=== PATIENT | female | born 2000 | race African-American/Black ===

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

== ENCOUNTER 2019-06-22 19:48 | Observation (INO) ==
[2019-06-22] MEDS ORDERED: ONDANSETRON ODT 4 MG TABLET PO STA (20:24)
[2019-06-22 21:12] LABS: Basophils % 0.2 % (0.0-0.8); Eosinophils # 0.2 10*3/uL (0.0-0.87); Eosinophils % 2.5 % (0.00-10.9); Hematocrit 22.1 VOL% (35.7-47.0); Immature Granulocytes % 0.4 %; Immature Granulocytes Absolute 0.03 #; Lymphocytes % 36.6 % (21.3-54.2); Mean Corpuscular Volume 56.5 FL (87-102); Mean Platelet Volume 9.9 FL (9.6-12.0); Monocytes % 5.9 % (1.7-12.7); NRBC # 0.06 10*3/uL; Neutrophils % 54.4 % (38.7-73.9); Platelet Count 501 T/CUMM (130-400); Red Blood Count 3.91 MC/CUMM (3.8-5.5); Red Cell Distribution Width 24.6 % (9.3-17.3); White Blood Count 8.3 T/CUMM (4-12)
[2019-06-22 21:14] LABS: Apearance,Urine CLEAR (Clear); Bilirubin,Urine Negative (Negative); Blood, Urine Large mg/dL (Negative); Glucose,Urine (UA) Negative (Negative); Ketones,Urine Negative (Negative); Mucus,Urine Occasional /LPF (Occasional); Nitrite,Urine Negative (Negative); Protein,Urine Negative; RBC,Urine 7 /HPF (0-4); Squamous Epithelial Cell,Urine Occasional /HPF (0-10); Urine Color Yellow (Yellow); Urine Specific Gravity 1.021 (1.001-1.035); Urine Urobilinogen < 2.0 EU/DL (0.2-1.0); WBC,Urine <1 /HPF (0-6)
[2019-06-22 21:15] LABS: Hemoglobin 5.3 GM/DL (12.0-16.0)
[2019-06-22 21:19] LABS: Elliptocytes Few; Hypochromasia 2+
[2019-06-22 21:20] LABS: Microcytosis 2+; Platelet Estimate Increased; Polychromasia 1+; Tear Drop Cells 2+
[2019-06-22] MEDS ORDERED: IBUPROFEN 800 MG TABLET PO PRN (21:31)
[2019-06-22] MEDS ORDERED: ACETAMINOPHEN 325 MG TABLET PO PRN (21:31)
[2019-06-22] MEDS ORDERED: ONDANSETRON 4 MG/2 ML VIAL IV PRN (21:31)
[2019-06-22 21:36] LABS: Alanine Aminotransferase 16 U/L (13-56); Albumin 3.1 G/DL (3.4-5.0); Alkaline Phosphatase 70 U/L (45-117); Aspartate Amino Transferase 7 U/L (0-37); Bilirubin,Total < 0.39 MG/DL (0.2-1.0); Blood Urea Nitrogen 9 MG/DL (7-18); Calcium 8.5 MG/DL (8.5-10.1); Estimated Glom Filtration Rate 178 ML/MIN; Glucose 120 MG/DL (74-106); Osmolality,Calculated 282.1 MOS/KG (273-304); Total Protein 7.1 G/DL (6.4-8.3)
[2019-06-22] MEDS ORDERED: SODIUM CHLORIDE 0.9% 1,000 ML IV PRN (22:06)
[2019-06-22] MEDS ORDERED: ACETAMINOPHEN 500 MG TABLET PO ONE (22:08)
[2019-06-22] MEDS ORDERED: FUROSEMIDE 20 MG/2 ML VIAL IV ONE (22:08)
[2019-06-23 08:52] LABS: Alanine Aminotransferase 13 U/L (13-56); Alkaline Phosphatase 61 U/L (45-117); Aspartate Amino Transferase 8 U/L (0-37); Bilirubin,Total < 0.39 MG/DL (0.2-1.0); Blood Urea Nitrogen 10 MG/DL (7-18); Calcium 8.7 MG/DL (8.5-10.1); Estimated Glom Filtration Rate 155 ML/MIN; Glucose 87 MG/DL (74-106); Osmolality,Calculated 278.3 MOS/KG (273-304); Total Protein 6.9 G/DL (6.4-8.3)
[2019-06-23 09:12] LABS: Basophils % 0.5 % (0.0-0.8); Eosinophils # 0.2 10*3/uL (0.0-0.87); Eosinophils % 2.7 % (0.00-10.9); Hematocrit 30.3 VOL% (35.7-47.0); Immature Granulocytes % 0.3 %; Immature Granulocytes Absolute 0.02 #; Lymphocytes # 2.9 10*3/uL (1.4-4.0); Lymphocytes % 39.9 % (21.3-54.2); Mean Corpuscular HGB Conc 26.7 GM/DL (32-36); Mean Corpuscular Volume 63.9 FL (87-102); Mean Platelet Volume 9.5 FL (9.6-12.0); Monocytes % 4.8 % (1.7-12.7); NRBC # 0.04 10*3/uL; Neutrophils % 51.8 % (38.7-73.9); Platelet Count 425 T/CUMM (130-400); Red Blood Count 4.74 MC/CUMM (3.8-5.5); Red Cell Distribution Width 31.8 % (9.3-17.3); White Blood Count 7.3 T/CUMM (4-12)
[2019-06-23 09:21] LABS: Hemoglobin 8.1 GM/DL (12.0-16.0)
[2019-06-23 10:36] LABS: Anisocytosis 1+; Hypochromasia 2+
[2019-06-23 10:37] LABS: Microcytosis 1+; Ovalocytes Slight
[2019-06-23 10:38] LABS: Platelet Estimate Increased; Tear Drop Cells Slight
[2019-06-23 11:18] VITALS: BP 131/78
== END 2019-06-23 11:50 | disposition home or self-care (01) ==
LOC: N.EDINP 19:48 → N.ED 19:48 → N.OB 21:45 → N.EDINP 21:47
PROVIDERS: ADMIT Obstetrics & Gynecology; ATTEND Obstetrics & Gynecology

== ENCOUNTER 2019-07-16 20:56 | Observation (INO) ==
[2019-07-16] MEDS ORDERED: HYDROmorphone 2 MG/1 ML VIAL IV STA (21:18)
[2019-07-16] MEDS ORDERED: ONDANSETRON 4 MG/2 ML VIAL IV STA (21:18)
[2019-07-16] MEDS ORDERED: LACTATED RINGERS 500 ML IV STA (21:18)
[2019-07-16 21:45] LABS: Alanine Aminotransferase 20 U/L (13-56); Albumin 3.3 G/DL (3.4-5.0); Alkaline Phosphatase 76 U/L (45-117); Amylase 37 U/L (25-115); Aspartate Amino Transferase 16 U/L (0-37); Bilirubin,Total < 0.39 MG/DL (0.2-1.0); Blood Urea Nitrogen 15 MG/DL (7-18); Calcium 8.3 MG/DL (8.5-10.1); Estimated Glom Filtration Rate 116 ML/MIN; Glucose 111 MG/DL (74-106); Osmolality,Calculated 280.4 MOS/KG (273-304); Total Protein 7.6 G/DL (6.4-8.3)
[2019-07-16 21:51] LABS: Basophils # 0.1 10*3/uL (0.0-0.2); Basophils % 0.3 % (0.0-0.8); Eosinophils # 0.2 10*3/uL (0.0-0.87); Eosinophils % 0.8 % (0.00-10.9); Hematocrit 31.3 VOL% (35.7-47.0); Immature Granulocytes % 0.5 %; Lymphocytes # 3.5 10*3/uL (1.4-4.0); Lymphocytes % 17.9 % (21.3-54.2); Mean Corpuscular HGB Conc 26.5 GM/DL (32-36); Mean Corpuscular Volume 64.8 FL (87-102); Mean Platelet Volume 9.8 FL (9.6-12.0); Monocytes % 2.9 % (1.7-12.7); Neutrophils % 77.6 % (38.7-73.9); Platelet Count 629 T/CUMM (130-400); Red Blood Count 4.83 MC/CUMM (3.8-5.5); Red Cell Distribution Width 30.1 % (9.3-17.3); White Blood Count 19.3 T/CUMM (4-12)
[2019-07-16 21:54] LABS: Hemoglobin 8.3 GM/DL (12.0-16.0)
[2019-07-16] MEDS ORDERED: ACETAMINOPHEN 325 MG TABLET PO PRN (23:58)
[2019-07-16] MEDS ORDERED: ONDANSETRON 4 MG/2 ML VIAL IV PRN (23:58)
[2019-07-17] MEDS: SODIUM CHLORIDE 0.9% 1,000 ML IV SCH ×2 (00:15→11:34)
[2019-07-17] MEDS: HYDROmorphone 2 MG/1 ML VIAL IV PRN (04:53)
[2019-07-17 05:54] LABS: Apearance,Urine CLEAR (Clear); Bilirubin,Urine Negative (Negative); Blood, Urine Negative (Negative); Glucose,Urine (UA) Negative (Negative); Hyaline Casts,Urine 8 /LPF (0-3); Ketones,Urine Negative (Negative); Mucus,Urine Occasional /LPF (Occasional); Nitrite,Urine Negative (Negative); Protein,Urine Negative; RBC,Urine 2 /HPF (0-4); Squamous Epithelial Cell,Urine Occasional /HPF (0-10); Urine Color Yellow (Yellow); Urine Specific Gravity 1.056 (1.001-1.035); Urine Urobilinogen < 2.0 EU/DL (0.2-1.0); WBC,Urine 1 /HPF (0-6)
[2019-07-17 06:28] LABS: Barbiturates Screen,Urine Negative (Negative); Benzodiazepines Screen,Urine Negative (Negative); Cannabinoid Screen,Urine Negative (Negative); Opiate Screen,Urine Positive (Negative); Phencyclidine Screen,Urine Negative (Negative)
[2019-07-17 06:30] LABS: Basophils % 0.2 % (0.0-0.8); Eosinophils % 0.1 % (0.00-10.9); Hemoglobin 7.6 GM/DL (12.0-16.0); Immature Granulocytes % 0.5 %; Immature Granulocytes Absolute 0.08 #; Lymphocytes # 2.2 10*3/uL (1.4-4.0); Lymphocytes % 12.8 % (21.3-54.2); Mean Corpuscular HGB Conc 27.1 GM/DL (32-36); Mean Platelet Volume 9.4 FL (9.6-12.0); NRBC # 0.02 10*3/uL; Neutrophils % 82.4 % (38.7-73.9); Platelet Count 531 T/CUMM (130-400); Red Blood Count 4.31 MC/CUMM (3.8-5.5); Red Cell Distribution Width 30.1 % (9.3-17.3); White Blood Count 17.3 T/CUMM (4-12)
[2019-07-17 06:34] LABS: Hypochromasia 2+; Microcytosis 2+
[2019-07-17 06:35] LABS: Ovalocytes Few; Platelet Estimate Increased; Spherocytes Slight
[2019-07-17 06:36] LABS: Target Cells Slight
[2019-07-17] MEDS: PANTOPRAZOLE 40 MG TABLET PO SCH (09:51)
[2019-07-17] MEDS: FERROUS SULFATE 325 MG TABLET PO SCH (09:51)
[2019-07-17 12:17] LABS: Hematocrit 27.7 VOL% (35.7-47.0); Hemoglobin 7.3 GM/DL (12.0-16.0)
[2019-07-18 05:46] LABS: Calcium 8.5 MG/DL (8.5-10.1); Osmolality,Calculated 279.3 MOS/KG (273-304)
[2019-07-18 06:21] LABS: Basophils % 0.4 % (0.0-0.8); Eosinophils # 0.2 10*3/uL (0.0-0.87); Eosinophils % 2.1 % (0.00-10.9); Hematocrit 27.9 VOL% (35.7-47.0); Hemoglobin 7.4 GM/DL (12.0-16.0); Immature Granulocytes % 0.3 %; Immature Granulocytes Absolute 0.02 #; Lymphocytes # 2.5 10*3/uL (1.4-4.0); Lymphocytes % 32.6 % (21.3-54.2); Mean Corpuscular HGB Conc 26.5 GM/DL (32-36); Mean Corpuscular Volume 65.2 FL (87-102); Mean Platelet Volume 9.4 FL (9.6-12.0); Monocytes % 7.4 % (1.7-12.7); Neutrophils % 57.2 % (38.7-73.9); Platelet Count 474 T/CUMM (130-400); Red Blood Count 4.28 MC/CUMM (3.8-5.5); White Blood Count 7.8 T/CUMM (4-12)
[2019-07-18 07:22] LABS: Hypochromasia 2+; Microcytosis 2+; Ovalocytes Few
[2019-07-18 07:23] LABS: Platelet Estimate Increased; Spherocytes Slight
[2019-07-18] MEDS: HYDROmorphone 2 MG/1 ML VIAL IV PRN (08:16)
[2019-07-18] MEDS: PANTOPRAZOLE 40 MG TABLET PO SCH (09:18)
[2019-07-18] MEDS: FERROUS SULFATE 325 MG TABLET PO SCH (09:18)
[2019-07-18 11:32] VITALS: BP 111/58
== END 2019-07-18 12:48 | disposition home or self-care (01) ==
LOC: EDBD → EDUNIT# → N.EDINP 20:56 → N.ED 20:56 → N.3E 23:16
PROVIDERS: ADMIT Surgery; ATTEND Surgery